=== PATIENT | female | born 1955 | race Caucasian/White ===

== ENCOUNTER 2020-07-06 19:33 | Emergency (ER) | payer OTHER ==
[~2020-07-06] VITALS: Ht 162.6 cm; Wt 63.6 kg
[2020-07-06 20:30] VITALS: BP 105/66
[2020-07-06] MEDS ORDERED: acetaminophen 325mg tablet PO ONE ×2 (21:45→22:50)
--- NOTE | 2020-07-06 21:47 | NUR ---
SPOKE TO DR RUDOLPH REGARDING PATIENT, TYLENOL ORDERS
[2020-07-06] MEDS ORDERED: albuterol 2.5 MG/3 ML nebule NEB ONE (21:50)
--- NOTE | 2020-07-06 22:08 | NUR ---
RT paged to give pt an svn tx in [facility]. Per policy, known positive COVID pt's can only get MDI tx. Spoke luis carlos Alexandra in ER and he will speak with the incoming Dr. RT waiting on Dr to assess pt for MDI need
[2020-07-06 22:22] LABS: ALANINE AMINOTRANSFERASE 30 U/L (12-78); ALBUMIN 3.4 G/DL (3.4-5.0); ALKALINE PHOSPHATASE 41 IU/L (46-116); ANION GAP 9 (8-16); ASPARTATE AMINO TRANSFERASE 32 U/L (10-37); BASOPHILS % (AUTO) 0.2 % (0-1); BILIRUBIN,TOTAL 0.5 MG/DL (0.1-1.0); BLOOD UREA NITROGEN 26 MG/DL (7-18); CALCIUM 7.9 MG/DL (8.5-10.1); CHLORIDE 103 MMOL/L (99-107); CREATININE 1.04 MG/DL (0.40-0.90); EOSINOPHILS % (AUTO) 0.1 % (0-6); GLUCOSE 97 MG/DL (70-104); HEMATOCRIT 35.8 % (35.0-45.0); HEMOGLOBIN 12.1 g/dl (12.0-16.0); LYMPHOCYTES # (AUTO) 1.4 X10'3 (1.1-4.8); LYMPHOCYTES % (AUTO) 31.6 % (21-51); MEAN CORPUSCULAR HEMOGLOBIN 30.6 PG (27.0-31.0); MEAN CORPUSCULAR HGB CONC 33.7 g/dL (33.0-36.5); MEAN CORPUSCULAR VOLUME 90.7 FL (78-98); MEAN PLATELET VOLUME 7.7 FL (7.4-10.4); MONOCYTES # (AUTO) 0.5 X10'3 (0-0.9); MONOCYTES % (AUTO) 11.9 % (2-12); NEUTROPHILS # (AUTO) 2.5 X10'3 (1.8-7.7); NEUTROPHILS % (AUTO) 56.2 % (42-75); PLATELET COUNT 145 X10'3 (140-440); POTASSIUM 3.4 MMOL/L (3.5-5.1); RED BLOOD COUNT 3.95 X10'6 (4.20-5.60); RED CELL DISTRIBUTION WIDTH 13.1 % (11.5-14.5); SODIUM 142 MMOL/L (135-145); TOTAL CARBON DIOXIDE 30.4 MMOL/L (24-32); TOTAL PROTEIN 6.9 G/DL (6.4-8.2); WHITE BLOOD COUNT 4.4 X10'3 (4.5-11.0); eGFR 53 ML/MIN
[2020-07-06] MEDS ORDERED: ibuprofen tablet 400 MG TABLET PO ONE (22:50)
== END 2020-07-06 23:26 | disposition home or self-care (01) ==
LOC: ER 20:46
DX: U07.1 COVID-19 (principal); F17.200 Nicotine dependence, unspecified, uncomplicated; Z88.0 Allergy status to penicillin
CPT/HCPCS: 36415; 71045; 80053; 84145; 85025; 99282; 99283